=== PATIENT | male | born 1945 | race Caucasian/White ===

== ENCOUNTER 2021-10-19 11:56 | Outpatient (CLI) | payer MEDICARE ==
[2021-10-19 12:56] LABS: Hemoglobin 12.6 g/dL (13.5-17.5); Mean Corpuscular HGB CONC 33.1 g/dL (32.0-36.0); Mean Corpuscular Hemoglobin 34.1 pg (27.0-33.0); Mean Platelet Volume 12.2 fl (7.4-10.4); Platelet Count 136 10x3/uL (150-450); RBC Distribution Width 13.1 % (11.5-14.5)
[2021-10-19 13:04] LABS: INR-International Normal Ratio 1.2; Prothrombin Time 12.6 sec (9.5-12.1)
[2021-10-19 13:09] LABS: Anion Gap 12 mmol/L (10-20); BUN (Urea Nitrogen) 17 mg/dL (8.4-25.7); Calc. Creatinine Clearance 0 mL/min (70-130); Calcium 8.9 mg/dL (7.8-10.44); Carbon Dioxide 27 mmol/L (23-31); Chloride 106 mmol/L (98-107); Estimated GFR 72; Glucose 94 mg/dL (83-110); Potassium 4.8 mmol/L (3.5-5.1); Sodium 140 mmol/L (136-145)
== END 2021-10-19 11:57 | disposition home or self-care (01) ==
LOC: LABBT 11:56
PROVIDERS: ATTEND Internal Medicine Cardiovascular Disease
DX: Z20.822 Contact with and (suspected) exposure to COVID-19 (principal)
CPT/HCPCS: 80048; 85027; 85610; 87811

== ENCOUNTER 2021-10-22 05:28 | Day surgery (SDC) | payer MEDICARE ==
[2021-10-20 13:45] VITALS: BMI 32.1
[2021-10-22] MEDS ORDERED: PROPOFOL 40 ML ONE (07:04)
[2021-10-22] MEDS ORDERED: Lidocaine 1% MPF 2 ML VIAL ONE (07:23)
== END 2021-10-22 08:26 | disposition home or self-care (01) ==
LOC: SDC 05:28
PROVIDERS: ATTEND Internal Medicine Cardiovascular Disease
PROC: 5A2204Z Restoration of Cardiac Rhythm, Single (ICD-10-PCS; principal; 2021-10-22)
DX: I48.19 Other persistent atrial fibrillation (principal); I10 Essential (primary) hypertension; G47.33 Obstructive sleep apnea (adult) (pediatric); D69.6 Thrombocytopenia, unspecified; N40.0 Benign prostatic hyperplasia without lower urinary tract symptoms; G25.0 Essential tremor; K21.9 Gastro-esophageal reflux disease without esophagitis; Z87.891 Personal history of nicotine dependence; Z79.01 Long term (current) use of anticoagulants; Z79.899 Other long term (current) drug therapy; Z88.1 Allergy status to other antibiotic agents; Z88.5 Allergy status to narcotic agent; Z88.7 Allergy status to serum and vaccine; Z88.8 Allergy status to other drugs, medicaments and biological substances; Z91.041 Radiographic dye allergy status
CPT/HCPCS: 92960; 93005; 93010; J2704

== ENCOUNTER → 2022-10-12 | Day surgery (SDC) | payer MEDICARE ==
[2022-10-01 13:55] VITALS: BMI 33.2
[2022-10-01 14:32] LABS: Hematocrit 38.6 % (38.8-50.0); Hemoglobin 12.5 g/dL (13.5-17.5); Mean Corpuscular HGB CONC 32.4 g/dL (32.0-36.0); Mean Corpuscular Hemoglobin 33.5 pg (27.0-33.0); Mean Corpuscular Volume 103.5 fl (81.2-95.1); Mean Platelet Volume 11.4 fl (7.4-10.4); Platelet Count 144 10x3/uL (150-450); RBC Distribution Width 13.2 % (11.5-14.5); Red Blood Cell (RBC) Count 3.73 10x6/uL (4.32-5.72); White Blood Cell (WBC) Count 7.5 10x3/uL (3.5-10.5)
[2022-10-01 14:49] LABS: INR-International Normal Ratio 1.2; Prothrombin Time 12.8 sec (9.5-12.1)
[2022-10-01 14:52] LABS: Anion Gap 14 mmol/L (10-20); BUN (Urea Nitrogen) 16 mg/dL (8.4-25.7); Calc. Creatinine Clearance 103 mL/min (70-130); Calcium 8.9 mg/dL (7.8-10.44); Carbon Dioxide 27 mmol/L (23-31); Chloride 105 mmol/L (98-107); Estimated GFR 70; Glucose 82 mg/dL (83-110); Potassium 4.2 mmol/L (3.5-5.1); Sodium 142 mmol/L (136-145)
[~2022-10-12] MED LIST: GLYCOPYRROLATE/PF 0.2 MG/ML VIAL ONE; PROPOFOL 20 ML ONE
== END ==
LOC: SDC 05:44
PROVIDERS: ATTEND Internal Medicine Cardiovascular Disease
PROC: 5A2204Z Restoration of Cardiac Rhythm, Single (ICD-10-PCS; principal; 2022-10-12)
DX: I48.19 Other persistent atrial fibrillation (principal); Z88.8 Allergy status to other drugs, medicaments and biological substances; I48.0 Paroxysmal atrial fibrillation; I10 Essential (primary) hypertension; G47.33 Obstructive sleep apnea (adult) (pediatric); K21.9 Gastro-esophageal reflux disease without esophagitis; F32.A Depression, unspecified; N40.0 Benign prostatic hyperplasia without lower urinary tract symptoms; Z87.891 Personal history of nicotine dependence; Z88.1 Allergy status to other antibiotic agents; Z88.6 Allergy status to analgesic agent; Z88.5 Allergy status to narcotic agent; Z79.01 Long term (current) use of anticoagulants; Z79.899 Other long term (current) drug therapy; Z95.818 Presence of other cardiac implants and grafts
CPT/HCPCS: 80048; 85027; 85610; 92960; 93005; J3490; 93010; J2704

== ENCOUNTER 2024-10-28 09:39 | Outpatient (CLI) | payer MEDICARE | END 2024-10-28 09:40 | disposition home or self-care (01) | LOC: ULT 09:39 | PROVIDERS: ATTEND Internal Medicine Gastroenterology | DX: R10.9 Unspecified abdominal pain (principal); K21.9 Gastro-esophageal reflux disease without esophagitis | CPT/HCPCS: 76705 ==

== ENCOUNTER 2024-12-07 12:28 | Outpatient (CLI) | payer MEDICARE ==
[2024-12-07 12:56] LABS: Estimated GFR - POC 47.0
[2024-12-07] MEDS ORDERED: Iopamidol 370 76% 100 ML VIAL ONE (14:50)
== END 2024-12-07 12:29 | disposition home or self-care (01) ==
LOC: CT 12:28
PROVIDERS: ATTEND Internal Medicine Gastroenterology
DX: R10.9 Unspecified abdominal pain (principal); R93.5 Abnormal findings on diagnostic imaging of other abdominal regions, including retroperitoneum; K57.30 Diverticulosis of large intestine without perforation or abscess without bleeding
CPT/HCPCS: 36415; 74177; 82565; Q9967